=== PATIENT | male | born 1955 | race Hispanic/Latino ===

== ENCOUNTER 2017-10-09 06:11 | Day surgery (SDC) | payer BC ==
[2017-10-08 13:13] VITALS: BP 130/74
[2017-10-08 13:20] LABS: HEMATOCRIT 46.1 % (42-54); LYMPHOCYTES % (AUTO) 22.5 % (21.0-51.0); MEAN CORPUSCULAR HEMOGLOBIN 29.7 pg (27.0-33.0); MEAN CORPUSCULAR HGB CONC 33.6 g/dL (32.0-36.0); MEAN CORPUSCULAR VOLUME 88.5 fL (79-99); MONOCYTES % (AUTO) 5.9 % (3.0-13.0); NEUTROPHILS % (AUTO) 69.6 % (40.0-77.0); PLATELET COUNT (AUTO) 312 K/uL (130-400); RED BLOOD CELL COUNT(AUTO) 5.21 MIL/uL (4.50-6.20); RED CELL DISTRIBUTION WIDTH 13.6 % (11.0-15.5); WHITE BLOOD COUNT (AUTO) 10.6 K/uL (4.8-10.8)
[2017-10-08 13:34] LABS: CREATININE 1.4 mg/dL (0.5-1.5); POTASSIUM 4.5 mmol/L (3.5-5.1)
[2017-10-08 13:44] LABS: INR 1.1 (0.85-1.15); PARTIAL THROMBOPLASTIN TIME 28.5 SEC (26.3-35.5); PROTHROMBIN TIME 11.5 SEC (9.6-11.6)
[2017-10-08 14:01] LABS: APPEARANCE,URINE Clear (CLEAR); BILIRUBIN,URINE Negative (NEGATIVE); COLOR,URINE Yellow (YELLOW); GLUCOSE, URINE (UA) Negative (NEGATIVE); KETONES,URINE Negative (NEGATIVE); LEUKOCYTE ESTERASE ,URINE Negative (NEGATIVE); NITRATE,URINE Negative (NEGATIVE); OCCULT BLOOD,URINE Negative (NEGATIVE); PH,URINE 5.5 (5.0-8.0); PROTEIN,URINE Negative (NEGATIVE)
[2017-10-09] VITALS (10 sets, daily range): BP systolic 118–153; BP diastolic 71–90
[~2017-10-09] VITALS: Ht 175.3 cm; Wt 86.8 kg
[~2017-10-09 06:11] MED LIST: ATOR20TA65 PO; MOME13HF IH; MONT10TA24 PO; SODIUM CHLORIDE 0.9% 500ML 500 ML IV SCH; VALS80TA29 PO
[2017-10-09] MEDS ORDERED: SODIUM CHLORIDE 0.9% 1000ML 1,000 ML IV SCH ×2 (06:30→09:50)
[2017-10-09] MEDS ORDERED: IOPAMIDOL-370 100 ML VIAL IV ONE ×2 (08:00→08:57)
[2017-10-09] MEDS ORDERED: NITROGLYCERIN 50 MG/D5% WATER 1 BOT ONE (08:00)
[2017-10-09] MEDS ORDERED: LIDOCAINE HCL 2% 20ML ONE (08:00)
[2017-10-09] MEDS ORDERED: ISOVUE-370 50ML VIAL IV ONE ×2 (08:00→09:08)
[2017-10-09] MEDS ORDERED: BIVALIRUDIN 250 MG/VIAL IV ONE (08:01)
[2017-10-09] MEDS ORDERED: MIDAZOLAM HCL 1 MG/ML 2ML VIAL ONE (08:31)
[2017-10-09] MEDS ORDERED: ASPIRIN 325MG EC TAB 325 MG TABLET.DR PO ONE (09:55)
[2017-10-09] MEDS ORDERED: ASPI-555 PO (09:57)
[2017-10-09] MEDS ORDERED: ACETAMINOPHEN-CODEINE 300/30MG TAB PO PRN ×2 (10:00)
== END 2017-10-09 16:05 | disposition home or self-care (01) ==
LOC: DAH 06:11
PROVIDERS: ATTEND Internal Medicine Cardiovascular Disease
DX: I25.10 Atherosclerotic heart disease of native coronary artery without angina pectoris (principal); I10 Essential (primary) hypertension; E78.00 Pure hypercholesterolemia, unspecified; Z98.890 Other specified postprocedural states; Z79.01 Long term (current) use of anticoagulants; Z82.49 Family history of ischemic heart disease and other diseases of the circulatory system
CPT/HCPCS: 36415; 71045; 80048; 81003; 85025; 85610; 85730; 93005; 93458; 99156; 99157; A4606; C1760; C1894; J1644; J2250; J3490 ×2; J7040 ×2; Q9967 ×3; 99152; 99153; J0583

== ENCOUNTER 2019-07-01 05:49 | Day surgery (SDC) | payer BC ==
[2019-06-29 12:59] LABS: BASOPHILS % (AUTO) 0.3 % (0.0-5.0); EOSINOPHILS % (AUTO) 3.6 % (0.0-8.0); HEMATOCRIT 47.6 % (42-54); LYMPHOCYTES % (AUTO) 27.6 % (21.0-51.0); MEAN CORPUSCULAR HEMOGLOBIN 30.3 pg (27.0-33.0); MEAN CORPUSCULAR HGB CONC 33.5 g/dL (32.0-36.0); MEAN CORPUSCULAR VOLUME 90.4 fL (79-99); MONOCYTES % (AUTO) 8.7 % (3.0-13.0); NEUTROPHILS % (AUTO) 59.8 % (40.0-77.0); PLATELET COUNT (AUTO) 187 K/uL (130-400); RED BLOOD CELL COUNT(AUTO) 5.27 MIL/uL (4.50-6.20); WHITE BLOOD COUNT (AUTO) 6.8 K/uL (4.8-10.8)
[2019-06-29 13:00] LABS: APPEARANCE,URINE Clear (CLEAR); BILIRUBIN,URINE Negative (NEGATIVE); COLOR,URINE Yellow (YELLOW); GLUCOSE, URINE (UA) Negative (NEGATIVE); KETONES,URINE Negative (NEGATIVE); LEUKOCYTE ESTERASE ,URINE Negative (NEGATIVE); NITRATE,URINE Negative (NEGATIVE); OCCULT BLOOD,URINE Negative (NEGATIVE); PROTEIN,URINE Negative (NEGATIVE)
[2019-06-29 13:08] LABS: CREATININE 1.4 mg/dL (0.5-1.5); POTASSIUM 4.5 mmol/L (3.5-5.1)
[2019-06-29 13:15] LABS: INR 1.09 (0.85-1.15); PROTHROMBIN TIME 11.4 SEC (9.6-11.6)
[2019-06-29 13:27] VITALS: BP 155/80
--- NOTE | 2019-06-30 12:15 | NUR ---
ABNORMAL [facility]S CALLED [facility] TO REPORT CREAT 1.4. SPOKE TO ALESSANDRA, STATED TO FAX LAB RESULT AND WILL REPORT TO DR. MELISSA RUTHERFORD' REHABILITATION COUNSELLOR. BMP RESULT FAXED, ALESSANDRA CONFIRMED THEY RECEIVED. PER ALESSANDRA, THEY WILL FAX US BACK FOR ANY ORDERS.
--- NOTE | 2019-06-30 17:35 | NUR ---
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
[2019-07-01] VITALS (10 sets, daily range): BP systolic 98–152; BP diastolic 59–83
[~2019-07-01] VITALS: Ht 179.1 cm; Wt 86.3 kg
[~2019-07-01 05:49] MED LIST changes: +ASPI-555 PO; +METO-408 PO; -MOME13HF IH; -MONT10TA24 PO; +OLME40TA8 PO; -VALS80TA29 PO
[2019-07-01] MEDS ORDERED: SODIUM CHLORIDE 0.9% 1000ML 1,000 ML IV ONE (06:27)
[2019-07-01] MEDS ORDERED: NITROGLYCERIN 5 MG/ML 10 ML VIAL IV ONE (07:14)
[2019-07-01] MEDS ORDERED: LIDOCAINE HCL 2% 20ML ONE (07:15)
[2019-07-01] MEDS ORDERED: IOHEXOL 350 MG/ML 100ML INFUS..BTL IV ONE (07:15)
[2019-07-01] MEDS ORDERED: IOHEXOL-350 50ML VIAL IV ONE (07:15)
[2019-07-01] MEDS ORDERED: MIDAZOLAM HCL 1 MG/ML 2ML VIAL ONE (07:43)
[2019-07-01] MEDS ORDERED: BIVALIRUDIN 250 MG/VIAL IV ONE (08:36)
[2019-07-01] MEDS ORDERED: SODIUM CHLORIDE 0.9% 1000ML 1,000 ML IV SCH (08:52)
== END 2019-07-01 13:15 | disposition home or self-care (01) ==
LOC: DAH 05:49
PROVIDERS: ATTEND Internal Medicine Cardiovascular Disease
DX: R94.39 Abnormal result of other cardiovascular function study (principal); I25.810 Atherosclerosis of coronary artery bypass graft(s) without angina pectoris; E78.00 Pure hypercholesterolemia, unspecified; I10 Essential (primary) hypertension; Z79.82 Long term (current) use of aspirin; Z79.01 Long term (current) use of anticoagulants; Z79.899 Other long term (current) drug therapy; Z98.890 Other specified postprocedural states; Z88.0 Allergy status to penicillin
CPT/HCPCS: 36415; 71045; 80048; 81003; 85025; 85610; 85730; 93005; 93459; A4215; A4216; A4221; A4222; A4223 ×2; A4606; C1760; C1894; J1644; J2250; J3490 ×2; J7030; Q9965 ×2; Q9967 ×2; 99156; 99157; J0583